=== PATIENT | female | born 1985 | race Caucasian/White ===

== ENCOUNTER 2021-02-15 15:27 | Outpatient (REF) | payer OTHER, SELFPAY ==
[2021-02-15 15:32] LABS: MANUAL DIFF FLAG NO
[2021-02-15 15:46] LABS: Basophils Absolute Auto 0.1 X10*3/uL (0.0-0.2); Basophils Percent Auto 0.8 % (0-2); Eosinophils Absolute Auto 0.1 X10*3/uL (0.0-0.4); Eosinophils Percent Auto 1.8 % (0-4); Hematocrit 36.5 % (37-47); Hemoglobin 11.1 g/dl (12.0-16.0); Imm Gran Abs Auto 0.02 X10*3/uL (0.00-0.03); Imm Gran Pct Auto 0.3 % (0.0-0.4); Lymphocytes Absolute Auto 2.4 X10*3/uL (1.2-4.9); Lymphocytes Percent Auto 30.9 % (20-40); Mean Corpuscular HGB Conc 30.4 g/dl (31.0-35.0); Mean Corpuscular Hemoglobin 24.2 pg (27.0-33.0); Mean Corpuscular Volume 79.7 fL (80-98); Mean Platelet Volume 11.3 fL (9.4-12.3); Monocytes Absolute Auto 0.5 X10*3/uL (0.1-1.2); Monocytes Percent Auto 6.4 % (2-11); Neutrophils Absolute Auto 4.5 X10*3/uL (2.0-8.3); Neutrophils Percent Auto 59.8 % (45-73); Platelet Count 348 X10*3/uL (160-400); Red Blood Count 4.58 X10*6/uL (4.20-5.50); Red Cell Distribution Width 15.8 % (11.0-16.0); White Blood Count 7.6 X10*3/uL (4.8-10.8)
[2021-02-15 16:14] LABS: Alanine Aminotransferase 8 U/L (0-31); Albumin Level 4.1 g/dL (3.5-5.0); Alkaline Phosphatase 78 U/L (39-117); Anion Gap 13 (12-20); Aspartate Amino Transferase 11 U/L (5-31); Bilirubin Total 0.2 mg/dL (0.0-1.0); Blood Urea Nitrogen 10 mg/dL (9-16); Carbon Dioxide 25 mmol/L (22-29); Chloride 105 mmol/L (96-108); Cholesterol 162 mg/dL; Estimated Glomerular Filt Rate > 60; Glucose Fasting 89 mg/dL (60-99); HDL Cholesterol 35 mg/dL; LDL Cholesterol Calculated 110 mg/dl; Potassium 4.6 mmol/L (3.3-5.1); Sodium 138 mmol/L (135-145); Total Protein 7.1 g/dL (6.5-8.0); Triglycerides 87 mg/dL
[2021-02-15 16:35] LABS: TSH reflex Free T4 4.75 uIU/mL (0.32-4.0)
[2021-02-15 17:12] LABS: Reflex LDLD? No
[2021-02-15 17:17] LABS: Erythrocyte Sedimentation Rate 25 MM/HR (0-20)
[2021-02-15 17:38] LABS: Free T4 (Free Thyroxine) 0.95 ng/dL (0.71-1.85)
== END 2021-02-15 15:28 | disposition home or self-care (01) ==
LOC: HO.LNP 15:27
PROVIDERS: Visit Provider Internal Medicine
DX: E06.3 Autoimmune thyroiditis (principal); M79.10 Myalgia, unspecified site; M25.50 Pain in unspecified joint; F34.1 Dysthymic disorder; I10 Essential (primary) hypertension
CPT/HCPCS: 80053; 80061; 84439; 84443; 85025; 85652

== ENCOUNTER 2021-03-15 16:12 | Outpatient (REF) | payer OTHER, SELFPAY ==
[2021-03-15 16:56] LABS: Iron 25 mcg/dL (30-160); Percent Iron Saturation 6 % (15-50); Total Iron Binding Capacity 396 mcg/dL (228-428); Unsaturated Iron Binding 371 ug/dL
== END 2021-03-15 16:13 | disposition home or self-care (01) ==
LOC: HO.LNP 16:12
PROVIDERS: Visit Provider Internal Medicine
DX: D50.9 Iron deficiency anemia, unspecified (principal)
CPT/HCPCS: 83540